=== PATIENT | female | born 2000 ===

== ENCOUNTER → 2022-07-29 16:45 | Outpatient (ROUT) | payer OTHER, SELFPAY ==
[2022-07-29 17:46] LABS: Thyroid Stimulating Hormone 1.13 uIU/mL (0.47-4.68)
== END ==
PROVIDERS: Family Provider Family Medicine; PCP Family Medicine; Visit Provider Nurse Practitioner
DX: E04.9 Nontoxic goiter, unspecified (principal)
CPT/HCPCS: 84443

== ENCOUNTER 2025-02-03 14:58 | Emergency (ER) | payer OTHER, SELFPAY ==
[2025-02-03 15:06] VITALS: BP 133/86; PULSE 94; RESP 20; TEMP 37.1; O2SAT 95; BMI 23.6
--- NOTE | 2025-02-03 15:23 | ED_ITS ---
HPI - Wound/Laceration General Chief Complaint: Wound/Laceration Stated Complaint: laceration r finger L hand Time Seen by Provider: 02/03/25 15:06 Source: patient Mode of arrival: Ambulatory History of Present Illness HPI narrative: 24y F presents with left hand laceration after wine bottle fell with laceration to left ring and left pinky finger for which she called EMS who sent her here via private vehicle after wrapping it up. She is unsure when her last tetanus was. She has some tingling to the left ring finger otherwise has no other complaints on 14 point review of system. Related Data Previous Rx's ?Medication ?Instructions ?Recorded albuterol sulfate 90 mcg/actuation 0 puff INH PRN PRN #1 puff 02/27/16 aerosol inhaler (Ventolin HFA) nitrofurantoin 100 mg PO BID #10 caps 06/10 monohydrate/macrocrystals 100 mg capsule (Macrobid) phenazopyridine 100 mg tablet 100 mg PO TID #15 tabs 0 06/10/16 (Pyridium) drospirenone 3 mg-ethinyl 1 tab PO QDAY ##1 10/20/16 estradiol 0.03 mg tablet (Tiffany (28)) Allergies Allergy/AdvReac Type Severity Reaction Status Date / Time No Known Drug Allergies Allergy Verified 02/03/25 15:05 Review of Systems Review of Systems ROS Unobtainable: All systems reviewed & are unremarkable except as noted in HPI and below Patient History Social History Smoking Status: Never smoker Smoking Status: Never smoker Exam Narrative Exam Narrative: GENERAL: [24] year old patient appears stated age. Well-developed patient, in mild distress. HEAD: Atraumatic. Normocephalic. EYES: Pupils equal round and reactive. Extraocular motions intact. No scleral icterus. No injection or drainage. EXTREMITIES: No edema or joint tenderness. BACK: Nontender without deformity or crepitance. No flank tenderness. NEURO: AOx3. SKIN: L 4th digit over MP joint medial side diagonal irregular superficial 0.25x 0.25cm laceration +2 rad pulse cap refill <2secs L5 th digit PIP very superficial irregular thin flap skin V shape 0.1cm x 0.1cm Initial Vital Signs Initial Vital Signs: Vital Signs Temperature 98.7 F 02/03/25 15:06 Pulse Rate 94 H 02/03/25 15:06 Respiratory Rate 20 02/03/25 15:06 Blood Pressure 133/86 02/03/25 15:06 Pulse Oximetry 95 02/03/25 15:06 Oxygen Delivery Method Room Air 02/03/25 15:06 Procedures Laceration Repair Laceration 1: Time of procedure: 15:59 Site: hand (L ring finger) Side (If applicable): left Size (cm): 0.25 Description: irregular Depth: simple, single layer Local Anesthetic: lidocaine 1% and with epi Amount of anesthesia used (mL): 0.5 Pre-repair: wound explored, irrigated extensively and deep structures intact Skin layer closed with: nylon Skin layer suture size: 5-0 Number of sutures: 3 Technique: simple, interrupted Course Vital Signs Vital signs: Vital Signs - 8 hr 02/03/25 15:06 Temperature 98.7 F Pulse Rate 94 H Respiratory Rate 20 Blood Pressure 133/86 Pulse Oximetry 95 Oxygen Delivery Method Room Air MDM - Wound/Laceration MDM Narrative Medical decision making narrative: All lab work, vital signs, nurse triage note, medication list, previous ER visits, and all imaging studies reviewed. Patient received three stitches to ring finger and tetanus updated on today's visit. Bacitracin ointment applied to both fingers. Suture removal in 10-14 days Discharge Plan Departure Patient Disposition: Home Clinical Impression: Finger laceration Instructions: DI for Laceration Repair Activity Restrictions/Additional Instructions: Return with new or worsening symptoms. Suture removal in 10-14 days with PCP. Prescriptions: No Action albuterol sulfate [Ventolin HFA] 90 MCG/PUFF HFA aerosol inhaler 0 puff INH PRN PRNQty: 1 2RF phenazopyridine [Pyridium] 100 MG tablet 100 mg PO TID Qty: 15 0RF nitrofurantoin monohyd/m-cryst [Macrobid] 100 MG capsule 100 mg PO BID Qty: 10 0RF drospirenone-ethinyl estradiol [Tiffany (28)] 0.03 MG/3 MG tablet 1 tab PO QDAY Qty: 1 5RF Referrals: Darryl Mcdermott MD [Primary Care Provider, [facility]] Stand Alone Forms: Patient Portal/API
[2025-02-03] MEDS: LIDOCAINE 1% W/EPI 10ML 4 ML INJ (15:25)
[2025-02-03] MEDS: TET,DIPH,PERTUSS(ACELL),VAC/PF 0.5 ML SYRINGE IM (16:26)
[2025-02-03] MEDS: BACITRACIN OINT 0.9 GM PCKT 1 APPLIC TOP (16:27)
[2025-02-03 16:28] VITALS: BP 127/75; PULSE 78; RESP 16
== END 2025-02-03 16:29 | disposition home or self-care (01) ==
PROVIDERS: Emergency Provider Family Medicine; Family Provider Family Medicine; PCP Family Medicine
DX: S61.215A Laceration without foreign body of left ring finger without damage to nail, initial encounter (principal); S61.217A Laceration without foreign body of left little finger without damage to nail, initial encounter; W25.XXXA Contact with sharp glass, initial encounter; Z23 Encounter for immunization
CPT/HCPCS: 12001; 90471; 99283; 90715